=== PATIENT | male | born 1965 | race Caucasian/White ===

== ENCOUNTER 2018-12-02 14:07 | Emergency (ER) | payer SELFPAY ==
[2018-12-02] MEDS ORDERED: ONDANSETRON HCL INJ/PF 4 MG/2 ML SDV IV ONE (14:46)
[2018-12-02] MEDS ORDERED: NORMAL SALINE 1000 ML 1,000 ML IV ONE ×3 (14:46→16:50)
--- NOTE | 2018-12-02 14:48 | ER Document Report ---
ED Medical Screen (RME) - General Chief Complaint: ETOH Abuse Stated Complaint: ETOH Time Seen by Provider: 12/02/18 14:45 Information source: Patient Notes: Patient presents requesting detox. Patient attempted to go to [place] although they would not see him as he has been vomiting blood. Patient states that he is primarily vomiting foam but there is occasional blood flecks in the emesis. Patient reports last having alcohol about an hour prior to arrival. Patient reports medical history of hypertension. Patient denies any history of cirrhosis. I have greeted and performed a rapid initial assessment of this patient. A comprehensive ED assessment and evaluation of the patient, analysis of test results and completion of the medical decision making process will be conducted by additional ED providers. - Related Data Allergies/Adverse Reactions: No Known Allergies Allergy (Unverified 12/02/18 14:43) Physical Exam - Vital signs Vitals: Temp Pulse Resp BP Pulse Ox 97.6 F 102 H 18 137/93 H 93 12/02/18 14:18 12/02/18 14:18 12/02/18 14:18 12/02/18 14:18 12/02/18 14:18 - General General appearance: Alert Notes: Slurred speech, argumentative with spouse, smells of alcohol Course - Vital Signs Vital signs: Temp Pulse Resp BP Pulse Ox 97.6 F 102 H 18 137/93 H 93 12/02/18 14:18 12/02/18 14:18 12/02/18 14:18 12/02/18 14:18 12/02/18 14:18
[2018-12-02 15:21] LABS: INTERNATIONAL RATION (INR) 0.98
[2018-12-02 15:23] LABS: PARTIAL THROMBOPLASTIN TIME 24.7 SEC (23.5-35.8)
[2018-12-02 15:36] LABS: ABSOLUTE BASOPHILS # (AUTO) 0.1 10^3/uL (0.0-0.2); ABSOLUTE EOSINOPHILS # (AUTO) 0.2 10^3/uL (0.0-0.6); ABSOLUTE LYMPHOCYTES (AUTO) 2.9 10^3/uL (0.5-4.7); ABSOLUTE MONOCYTES (AUTO) 0.5 10^3/uL (0.1-1.4); ABSOLUTE NEUT (AUTO) 2.2 10^3/uL (1.7-8.2); BASOPHILS % (AUTO) 1.9 % (0-2); EOSINOPHILS % (AUTO) 3.8 % (0-6); HEMATOCRIT 47.6 % (37.9-51.0); LYMPHOCYTES % (AUTO) 48.7 % (13-45); MEAN CORPUSCULAR HEMOGLOBIN 31.8 pg (27.0-33.4); MEAN CORPUSCULAR HGB CONC 33.6 g/dL (32.0-36.0); MEAN CORPUSCULAR VOLUME 95 fl (80-97); MONOCYTES % (AUTO) 7.9 % (3-13); PLATELET COUNT 241 10^3/uL (150-450); RED BLOOD COUNT 5.03 10^6/uL (4.35-5.55); RED CELL DISTRIBUTION WIDTH 13.6 % (11.5-14.0); SEGMENTED NEUTROPHILS % (AUTO) 37.7 % (42-78); TOTAL CELLS COUNTED % (AUTO) 100 %; WHITE BLOOD COUNT 5.9 10^3/uL (4.0-10.5)
[2018-12-02 15:54] LABS: ALBUMIN 4.7 g/dL (3.5-5.0); ALCOHOL 247 mg/dL (NONE DETECTED); ALKALINE PHOSPHATASE 76 U/L (38-126); ANION GAP 14 (5-19); ASPARTATE AMINO TRANSFERASE 60 U/L (17-59); BILIRUBIN,DIRECT 0.2 mg/dL (0.0-0.4); BILIRUBIN,TOTAL 0.3 mg/dL (0.2-1.3); BLOOD UREA NITROGEN 7 mg/dL (7-20); CALCIUM 9.2 mg/dL (8.4-10.2); CARBON DIOXIDE 26 mmol/L (22-30); CHLORIDE 109 mmol/L (98-107); GLUCOSE 98 mg/dL (75-110); POTASSIUM 4.3 mmol/L (3.6-5.0); TOTAL PROTEIN 8.7 g/dL (6.3-8.2)
[2018-12-02] MEDS ORDERED: METOCLOPRAMIDE HCL ORAL SOLN 10 MG/10 ML UDCUP PO ONE (16:49)
[2018-12-02] MEDS ORDERED: LIDOCAINE 2% VISCOUS SOLN 20 ML UDCUP PO ONE (16:49)
[2018-12-02] MEDS ORDERED: MAG HYDROX/AL HYDROX/SIMETH SUSP 30 ML UDCUP PO ONE (16:49)
[2018-12-02] MEDS ORDERED: ONDANSETRON HCL INJ/PF 4 MG/2 ML SDV ONE (16:55)
--- NOTE | 2018-12-02 17:49 | ER Document Report ---
ED Substance Abuse / Acc. OD - General Chief Complaint: ETOH Abuse Stated Complaint: ETOH Time Seen by Provider: 12/02/18 14:45 Notes: 53-year-old male with history of alcoholism presents to the emergency department intoxicated and requesting to go to detox. Patient presented to DX and was ready for placement when he had hematemesis and they sent him here for medical clearance. Patient states that he just wants to go to detox. Patient states that he always vomits up blood. Patient denies any dizziness or lightheadedness, denies any chest pain, denies acute shortness of breath, does complain of burning epigastric pain, denies any other symptoms. - Related Data Allergies/Adverse Reactions: No Known Allergies Allergy (Unverified 12/02/18 14:43) Home Medications: prilosec, zyrtec, metoprolol. Past Medical History - General Information source: Patient - Social History Smoking Status: Current Every Day Smoker Chew tobacco use (# tins/day): No Frequency of alcohol use: beer Drug Abuse: None Family History: None Patient has suicidal ideation: No Patient has homicidal ideation: No Review of Systems - Review of Systems Constitutional: See HPI EENT: No symptoms reported Cardiovascular: No symptoms reported, See HPI Respiratory: See HPI Gastrointestinal: See HPI Genitourinary: No symptoms reported Male Genitourinary: No symptoms reported Musculoskeletal: No symptoms reported Skin: No symptoms reported Hematologic/Lymphatic: No symptoms reported Neurological/Psychological: See HPI Physical Exam - Vital signs Vitals: Temp Pulse Resp BP Pulse Ox 97.6 F 102 H 18 137/93 H 93 12/02/18 14:18 12/02/18 14:18 12/02/18 14:18 12/02/18 14:18 12/02/18 14:18 - Notes Notes: PHYSICAL EXAMINATION: Reviewed vital signs and charting by RN GENERAL: Alert, interacts well. No acute distress. HEAD: Normocephalic, atraumatic. EYES: Pupils equal and round. Extraocular movements intact. ENT: Oral mucosa moist, tongue midline. NECK: Full range of motion. Trachea midline. LUNGS: Clear to auscultation bilaterally, no wheezes, rales, or rhonchi. No respiratory distress. HEART: Regular rate and rhythm. No murmur ABDOMEN: soft, non-tender. No distention. Bowel sounds present EXTREMITIES: Moves all 4 extremities spontaneously. No edema, No cyanosis. PSYCH: Normal affect, normal mood. SKIN: Warm, dry, normal turgor. No rashes or lesions noted. Course - Re-evaluation Re-evalutation: 12/02/18 17:46 Patient presents intoxicated only wishing for something to eat and to go to detox. Serum alcohol here 247. Patient became tearful when he stated that he had no one at all. Lab work did not show any evidence of an acute anemia, and AST: ALT ratio 2-1 consistent with chronic alcoholism, coagulation factors within normal limits. Patient was given a GI cocktail, he is getting normal saline 2 L, and we will get a repeat EtOH at 1800. I spoke with Robby, psychiatric social worker, who is aware of his case and she said that once a patient's EtOH level is below 206 will accept the patient. She confirmed with me that they do have a secured bed for him once he is cleared. I told this to the patient. 12/02/18 19:49 Repeat EtOH was 191. Patient was sleeping in the room when I went to discuss with him. I told him that he was stable for discharge. He did receive a tray of food and he was very pleasant and grateful. He is going to walk over to the [facility] facility upon discharge. He is stable for discharge. - Vital Signs Vital signs: Temp Pulse Resp BP Pulse Ox 97.6 F 102 H 18 137/93 H 93 12/02/18 14:18 12/02/18 14:18 12/02/18 14:18 12/02/18 14:18 12/02/18 14:18 - Laboratory Result Diagrams: 12/02/18 14:57 12/02/18 14:57 Laboratory results interpreted by me: 12/02/18 12/02/18 14:57 14:57 Lymph % (Auto) 48.7 H Seg Neutrophils % 37.7 L Sodium 148.9 H Chloride 109 H AST 60 H Total Protein 8.7 H Discharge - Discharge Clinical Impression: Acute alcohol intoxication Qualifiers: Complication of substance-induced condition: uncomplicated Qualified Code(s): F10.920 - Alcohol use, unspecified with intoxication, uncomplicated Vomiting Qualifiers: Vomiting type: hematemesis Nausea presence: with nausea Qualified Code(s): K92.0 - Hematemesis Condition: Good Disposition: HOME, SELF-CARE Additional Instructions: You were seen in the emergency department this evening for acute alcohol intoxication and blood in your vomit. Your work-up here was reassuring and there was no evidence of internal bleeding and you are medically cleared for detox at [facility]. Please return to the emergency department if you pass out, have severe chest p ain, acute shortness of breath, intractable vomiting, or you have any other concerning symptoms.
[2018-12-02 19:30] VITALS: BP 132/88
--- NOTE | 2018-12-03 20:19 | EKG REPORT ---
SEVERITY:- BORDERLINE ECG - SINUS RHYTHM BORDERLINE T ABNORMALITIES, INFERIOR LEADS : Confirmed by: Melanie Tello MD 03-Dec-2018 20:18:07
== END 2018-12-02 19:30 | disposition home or self-care (01) ==
LOC: ER 14:07
DX: F10.220 Alcohol dependence with intoxication, uncomplicated (principal); Y90.8 Blood alcohol level of 240 mg/100 ml or more; K92.0 Hematemesis; F17.200 Nicotine dependence, unspecified, uncomplicated; Z79.899 Other long term (current) drug therapy
CPT/HCPCS: 36415; 80307; 83690; 85025; 85610; 85730; 80053; J3490; J2405; J7030; 93005; 93010; 96361; 96374; 99284